=== PATIENT | male | born 1960 | race Caucasian/White ===

== ENCOUNTER 2016-07-07 14:35 | Emergency (ER) | payer BC, OTHER ==
[2016-07-07] MEDS ORDERED: ONDANSETRON 4 MG/2 ML VIAL IVP ONE (14:48)
[2016-07-07] MEDS ORDERED: Sodium Chloride 0.9% 1,000 ML PRIMARY IV ONE (14:48)
[2016-07-07] MEDS ORDERED: MORPHINE SULFATE 4 MG/1 ML IVP ONE (14:48)
--- NOTE | 2016-07-07 14:55 | PDOC ---
Male Genitourinary Problem HPI - General Chief Complaint: Genitourinary Complaint Stated Complaint: BACK PAIN YEST, R ABD PAIN RADIATING TO R GROIN Date Seen by Provider: 07/07/16 Time Seen by Provider: 14:50 Source: POSITIVE: Patient, Spouse Exam Limitations: POSITIVE: No limitations Nurse's Notes Reviewed & Considered: Yes - History of Present Illness Initial Comments: The patient comes in today with a chief complaint of right lower quadrant and right upper quadrant abdominal pain. Patient developed back pain on the right side that began in the morning, his back pain has since resolved. He now has complaints of abdominal pain in the bilateral lower quadrants and the right upper quadrant. He's had pain with urination and one episode of hematuria today. He took Percocet at 11 AM today without relief. Patient relates his father had an aortic aneurysm. He presently states his pain is a 7/ 10. Worse with palpation of his abdomen. Body Location Affected: REPORTS: Abdomen Timing: REPORTS: Abrupt Duration: >24 hours (Pain is been ongoing for 3 days.) Severity: Severe Quality: REPORTS: "Pain", Stabbing, Throbbing Context: REPORTS: Other (please comment) (Any movement causes increased pain) Sexual History: REPORTS: Non-Contributory Associated Symptoms: REPORTS: Problems Urinating, Pain, Blood in Urine, Flank Pain, Abdominal Pain, Right, Other (Radiates into his right scrotum.) Recent Care Received: REPORTS: Denies Any Prior Injuries Related to Current Complaint?: No - Patient Home Medications Home Medications: Home Medications Aspirin [Aspir 81] 81 mg PO DAILY 09/21/10 Cyclobenzaprine HCl [Flexeril] 10 mg PO DAILY 09/21/10 Gemfibrozil 600 mg PO BID 09/21/10 Levothyroxine Sodium 150 mcg PO DAILY 09/21/10 Tramadol HCl 50 mg PO DAILY PRN 09/21/10 oxyCODONE/APAP 5/325 Tab [Oxycodone-Apap 5-325 Mg Tab] 1 each PO TID PRN Calcium 600 mg PO DAILY 11/18/14 Niacin (Inositol Niacinate) [Niacin 500 mg Capsule] 500 mg PO DAILY 11/18/14 [place]-3 Fatty Acids/Fish Oil [Fish Oil 1,000 Mg Capsule] 1 each PO DAILY 05/29/ 15 Pantoprazole Sodium 1 tab PO DAILY #90 tab 11/30/14 Nitroglycerin 0.4 mg SL ASDIR #15 tab 11/28/15 Ezetimibe [Zetia] 10 mg PO DAILY #30 tab 12/19/15 - Patient Allergies Allergies/Adverse Reactions: Allergies Allergy/AdvReac Type Severity Reaction Status Date / Time naproxen [From Naprosyn] Allergy Intermediate VOMITING Verified 07/07/16 15:04 Past Medical History - heen HEENT History: Denies History Cardiovascular History: Hyperlipidemia Respiratory History: Pulmonary Embolism Gastrointestinal History: GERD Additional Gastrointestinal History: RECTAL BLEEDING AND ABDOMINAL PAIN Genitourinary History: Denies History Endocrine History: Hypothyroidism Musculoskeletal History: Arthritis, Joint Pain Prosthesis or Implant: Yes (METAL R ANKLE/L HIP/NECK ) Neurological History: Denies History Blood Disorders: Clotting Disorders Psychiatric History: Denies History History of Sexually Transmitted Diseases: No Cancer History: Denies History History of MDRO: No History of Other Communicable Diseases: No Alcohol Use: None Substance Use Type: None Previous Surgical History: Yes Type / Date of Surgery: COLONOSCOPY/ LEFT HIP ORIF/ RIGHT KNEE X 3/ RIGHT ANKLE ORIF/ LEFT SHOULDER /NECK Anesthesia Reactions: No (POST OP NAUSEA) Malignant Hyperthermia: No Significant Family History: Heart disease, Cancer, Diabetes, Hypertension, Vascular disease ROS - Limitations ROS Limitations: No Limitations Constitution: REPORTS: Denies Symptoms Cardiovascular: REPORTS: Denies Cardiac Symptoms Respiratory: REPORTS: Denies Resp Symptoms Neurological: REPORTS: Denies Neuro Symptoms Gastrointestinal: REPORTS: Abdominal Pain, Nausea Endocrine: REPORTS: Denies Symptoms Musculoskeletal: REPORTS: Back Pain Genitourinary: REPORTS: Dysuria, Hematuria, Difficulty Urinating Eyes: REPORTS: Denies Symptoms ENT: REPORTS: Denies Symptoms Skin: REPORTS: Denies Skin Symptoms Lympathic: REPORTS: Denies Lympathic Symptoms Immunologic: POSITIVE: Denies Symptoms Psychiatric: POSITIVE: Anxiety Male Genitourinary Exam - General Appearance General Appearance: POSITIVE: Alert, Cooperative, No Evidence of Trauma, Anxious , Moderate Distress - Abdomen Abdomen: Normal Bowel Sounds: (All Quadrants), No Splenomegaly: (All Quadrants) , No Hepatomegaly: (All Quadrants), No Palpable Pulse: (All Quadrants), No Palpabale Mass: (All Quadrants), No Distention: (All Quadrants), Tenderness Noted: (All Quadrants), Hypoactive Bowel Sounds: (All Quadrants), Guarding: ( All Quadrants) - HEENT HEENT: POSITIVE: Head Inspection Nml, Eyes Inspection Nml, Ears Inspection Nml, Nose Inspection Nml, PERRL, EOMI - Neck Neck: POSITIVE: Normal Inspection, No Apparent Injury - Respiratory Respiratory: POSITIVE: No Respiratory Distress, Breath Sounds Normal, Chest Non- Tender - Cardiovascular Cardiovascular: POSITIVE: Regular Rate and Rhythm, Heart Sounds Normal - Back Back: POSITIVE: Normal Inspection - Extremities Extremity: Non-Tender: (All Extremities), Normal ROM: (All Extremities), Normal Inspection: (All Extremities) - Neurological / Psychological Neurological: POSITIVE: Affect Apporpriate, Oriented X3 - Skin Skin: POSITIVE: Intact, Normal For Race, Warm, Dry, No Rash Male Genitourinary Progress - Results Reviewed by me Xrays/CTs/US Reviewed by me: Yes Discussed with Radiologist: Yes Lab Results Reviewed: Yes Lab Results: Laboratory Results 07/07/16 07/07/16 Range/Units 15:21 15:25 WBC 5.83 (4.8-10.8) 10^3/uL RBC 4.59 L (4.70-6.10) 10^6/uL Hgb 13.7 L (14.0-18.0) g/dL Hct 39.9 L (42.0-52.0) % MCV 86.9 (80-90) FL MCH 29.8 (27-31) PG MCHC 34.3 (33-37) g/dL RDW Std Deviation 38.8 L (39-50) fL RDW Coeff of Rl 12.4 (11.5-14.5) % Plt Count 408 H (140-350) 10*3/uL MPV 8.5 (7.4-12.2) FL Immature Gran % (Auto) 0.2 (0-5) % Neut % (Auto) 44.3 L (50-80) % Lymph % (Auto) 41.7 (10-50) % [place] % (Auto) 6.5 (5-15) % Eos % (Auto) 6.3 (0-8) % Baso % (Auto) 1.0 (0-1) % Immature Gran # (Auto) 0.01 10*3/UL Neut # (Auto) 2.58 10*3/UL Lymph # (Auto) 2.43 10*3/uL [place] # (Auto) 0.38 (0.3-0.8) 10*3/UL Eos # (Auto) 0.37 10*3/UL Baso # (Auto) 0.06 10*3/UL WBC Morphology Comment Normal morphology (NORM) Plt Morphology Comment Normal morphology (NORM) RBC Morph Comment Normal morphology (NORM) PT 10.4 (9.7-11.4) secs INR 1.01 (0.00-5.90) N/A Sodium 145 (135-145) meq/L Potassium 3.9 (3.8-5.2) meq/L Chloride 101 (98-112) meq/L Carbon Dioxide 28 (23-33) meq/L Anion Gap 16 (5-20) BUN 12 (7-22) mg/dL Creatinine 1.0 (0.70-1.50) mg/dL Estimated GFR > 60 (>60 ml/min/1.73m(2)) BUN/Creatinine Ratio 12.00 (6-20) Glucose 98 (78-110) mg/dL Calculated Osmolality 299.0 H (267-292) mOsm/kg Calcium 9.8 (8.7-10.7) mg/dL Magnesium 2.1 (1.6-2.4) mg/dL Total Bilirubin 0.4 (0.3-1.2) mg/dL AST 30 (21-57) IU/L ALT 38 (21-72) IU/L Alkaline Phosphatase 62 (38-126) IU/L Total Protein 7.9 (6.1-8.0) g/dL Albumin 4.9 H (3.5-4.8) g/dL Globulin 3.0 (2.50-4.10) g/dL Albumin/Globulin Ratio 1.60 (1.3-2.0) mg/g Ur Collection Type Clean catch urine Urine Color Yellow Urine Clarity Clear (CLEAR) Urine pH 6.5 (5.0-8.5) Ur Specific [place] 1.015 (1.005-1.030) Urine Protein Negative (NEG) mg/dl Urine Glucose (UA) Negative (NEG) mg/dL Urine Ketones Negative (NEG) Urine Occult Blood Negative (NEG) Urine Nitrate Negative (NEG) Urine Bilirubin Negative (NEG) Urine Urobilinogen 0.2 (0.2) EU/dL Ur Leukocyte Esterase Negative (NEG) Ur Culture Indicated? Culture not set EKG Interpretation:: POSITIVE: Normal Sinus Rhythm, Normal Rate, Normal QRS, Normal ST/T - Patient's Progress Pain Medication Addressed: POSITIVE: Yes Re-Examine Time:: 19:21 Status: POSITIVE: Unchanged MDM / ED Course: Patient brought into the emergency Department, examined, IV was established, blood drawn and sent to lab for studies, radiographic examinations obtained. Patient received a liter of normal saline, morphine, Dilaudid, and Toradol, as well as Zofran. Dilaudid seemed to help his pain briefly but it did return unabated. Patient wishes to be discharged home. Laboratory findings: Anemia. CT scan shows no acute intra-abdominal or intrapelvic abnormalities appreciated. Assessment: Abdominal pain unknown etiology. Plan: Discharge home, follow up tomorrow with the ER,or his primary care physician. - Consult Counseled: POSITIVE: Patient, Family, RE: Lab Results, RE: Radiology Results, RE : DX, RE: Need for F/U Patient Care Time - Estimated PCT Patient Care Time (In Minutes): 45 Vital Signs - Recent Vital Signs Vital Signs: Vital Signs (Last 8 hours) Temp Pulse Pulse Resp BP Pulse Ox 07/07/16 15:17 67 07/07/16 14:35 97.4 F 79 15 140/83 94 - VS Reviewed Vital Signs Reviewed: Yes Discharge Clinical Impression: Abdominal pain Discharge Disposition: Discharged to Home Condition: Stable Patient Instructions Given at Discharge: Acute Abdominal Pain (ED)
--- NOTE | 2016-07-07 15:19 | EKG ---
[address] [address] Measurements Intervals [place] Rate: 67 P: 52 RI: 151 QRS: 35 QRSD: 97 T: 47 QT: 397 QTc: 412 Interpretive Statements SINUS RHYTHM MINIMAL ST DEPRESSION [0.025+ mV ST DEPRESSION] INTERPRETATION BASED ON A DEFAULT AGE OF 40 YEARS No previous ECG available for comparison Electronically Signed On 07-08-16 09:55:54 MST by Kyle Boyce MD [email or web address]
[2016-07-07 15:38] LABS: BASOPHILS # (AUTO) 0.06 10*3/UL; EOSINOPHILS % (AUTO) 6.3 % (0-8); HEMATOCRIT 39.9 % (42.0-52.0); HEMOGLOBIN 13.7 g/dL (14.0-18.0); IMM GRAN % (AUTO) 0.2 % (0-5); IMM GRAN# (AUTO) 0.01 10*3/UL; LYMPHOCYTES # (AUTO) 2.43 10*3/uL; LYMPHOCYTES % (AUTO) 41.7 % (10-50); MEAN CORPUSCULAR HEMOGLOBIN 29.8 PG (27-31); MEAN CORPUSCULAR HGB CONC 34.3 g/dL (33-37); MEAN PLATELET VOLUME 8.5 FL (7.4-12.2); MONOCYTES # (AUTO) 0.38 10*3/UL (0.3-0.8); MONOCYTES % (AUTO) 6.5 % (5-15); NEUTROPHILS # (AUTO) 2.58 10*3/UL; NEUTROPHILS % (AUTO) 44.3 % (50-80); RDW COEFFICIENT OF VARIATION 12.4 % (11.5-14.5); RED BLOOD COUNT 4.59 10^6/uL (4.70-6.10); WHITE BLOOD COUNT 5.83 10^3/uL (4.8-10.8)
[2016-07-07 15:40] LABS: CLARITY,URINE CLEAR (CLEAR); PH,URINE 6.5 (5.0-8.5); URINE SAMPLE TYPE CLEAN CATCH URINE
[2016-07-07 15:40] LABS: PLATELET MORPHOLOGY COMMENT NORMAL MORPHOLOGY (NORM)
[2016-07-07 15:41] LABS: BILIRUBIN,URINE NEGATIVE (NEG); GLUCOSE, URINE (UA) NEGATIVE (NEG); LEUKOCYTE ESTERASE ,URINE NEGATIVE (NEG); NITRATE,URINE NEGATIVE (NEG); OCCULT BLOOD,URINE NEGATIVE (NEG); PROTEIN,URINE NEGATIVE (NEG); UROBILINOGEN,URINE 0.2 EU/dL (0.2)
[2016-07-07 15:47] LABS: PROTHROMBIN TIME 10.4 secs (9.7-11.4)
[2016-07-07 15:49] LABS: ASPARTATE AMINO TRANSFERASE 30 IU/L (21-57); BILIRUBIN,TOTAL 0.4 mg/dL (0.3-1.2); BLOOD UREA NITROGEN 12 mg/dL (7-22); CALCIUM 9.8 mg/dL (8.7-10.7); CHLORIDE 101 meq/L (98-112); EST GLOMERULAR FILTRATION > 60 (>60 ml/min/1.73m(2)); GLUCOSE 98 mg/dL (78-110); MAGNESIUM 2.1 mg/dL (1.6-2.4); POTASSIUM 3.9 meq/L (3.8-5.2); SODIUM 145 meq/L (135-145); TOTAL PROTEIN 7.9 g/dL (6.1-8.0)
[2016-07-07 15:56] VITALS: TEMP 97.4
[2016-07-07] MEDS ORDERED: HYDROmorphone 2 MG/1 ML IVP ONE ×2 (15:58→17:29)
--- NOTE | 2016-07-07 18:15 | DI ---
HISTORY: Periumbilical pain radiating to the groin for 4 days. COMPARISON: None available. TECHNIQUE: Multiple CT images were obtained through the abdomen and pelvis with contrast. FINDINGS: A moderate amount of stool is seen throughout the colon. No free air nor free fluid. There is a normal appendix. Mild degenerative changes of the spine. IMPRESSION: 1. No acute intra-abdominal pathology.
[2016-07-07] MEDS ORDERED: KETOROLAC 30 MG/1 ML VIAL IVP ONE (18:38)
[2016-07-07] MEDS ORDERED: oxyCODONE-ACETAMINOPHEN 5-325 TAB PO SCH (19:30)
[2016-07-07] MEDS ORDERED: oxyCODONE-ACETAMINOPHEN 5-325 TAB PO ONE (19:34)
[2016-07-07 19:50] VITALS: RESP 18
== END 2016-07-07 19:39 | disposition home or self-care (01) ==
LOC: ER 14:35
DX: R10.11 Right upper quadrant pain (principal); R30.9 Painful micturition, unspecified; R10.31 Right lower quadrant pain
CPT/HCPCS: 74177; 80053; 81003; 83735; 85025; 85610; 93005; 93010; 96374; 96375; 96376; 99284 ×2; J1885; J1170; J2270; J2405; J7030